=== PATIENT | male | born 2000 | race African-American/Black ===

== ENCOUNTER 2025-05-20 10:32 | Emergency (ER) | payer SELFPAY ==
[~2025-05-20] VITALS: Ht 185.4 cm; Wt 86.0 kg
[2025-05-20 10:38] VITALS: O2SAT 99
[2025-05-20 11:02] VITALS: BP 122/73; PULSE 71; RESP 16; TEMP 37.1; O2SAT 99
== END 2025-05-20 11:10 | disposition home or self-care (01) ==
LOC: ER 10:32
DX: K60.2 Anal fissure, unspecified (principal)
CPT/HCPCS: 99282